=== PATIENT | female | born 1970 | race African-American/Black ===

== ENCOUNTER 2021-02-25 18:41 | Emergency (ER) | payer SELFPAY ==
--- NOTE | 2021-02-25 18:58 | NUR ---
LWBS @ 1858 Addendum: 02/25/21 at 1931 by [id number] PATIENT LEFT WITHOUT BEING TRIAGED. NO FURTHER CARE PROVIDED FOR PATIENT.
== END 2021-02-25 18:58 | disposition left against medical advice (07) ==
LOC: MED 18:41
DX: M25.561 Pain in right knee (principal); Z53.21 Procedure and treatment not carried out due to patient leaving prior to being seen by health care provider